=== PATIENT | male | born 1945 | race Caucasian/White ===

== ENCOUNTER 2020-05-24 10:34 | Emergency (ER) | payer OTHER ==
[~2020-05-24] VITALS: Ht 172.7 cm; Wt 90.0 kg
[2020-05-24] MEDS ORDERED: INDOCIN25 MG PO (11:39)
[2020-05-24] MEDS ORDERED: LORTAB 1010 MG PO (11:39)
[2020-05-24 11:50] VITALS: BP 132/89
== END 2020-05-24 11:50 | disposition home or self-care (01) | DRG 554 ==
LOC: ED 10:34
DX: M10.031 Idiopathic gout, right wrist (principal); I10 Essential (primary) hypertension; Z95.5 Presence of coronary angioplasty implant and graft

== ENCOUNTER 2021-02-22 12:46 | Emergency (ER) | payer OTHER ==
[~2021-02-22] VITALS: Ht 172.7 cm; Wt 97.7 kg
[~2021-02-22 12:46] MED LIST: INDOCIN25 MG PO; LORTAB 1010 MG PO
[2021-02-22 13:31] LABS: HEMATOCRIT 50.8 % (39.0-50.0); HEMOGLOBIN 16.9 g/dl (14.0-18.0); IMMATURE GRANULOCYTES 0.3 % (0.0-5.0); MEAN CELL VOLUME 100.8 fL CALC (80.0-100.0); MEAN CORPUSCULAR HGB 33.5 pG CALC (26.0-32.0); MEAN CORPUSCULAR HGB CONC 33.3 g/dL CAL (32.0-36.0); NEUT# 8.04 thou/uL (1.82-7.42); RED BLOOD COUNT 5.04 mill/uL (4.70-6.10); RED CELL DISTRI WIDTH 12.8 % (11.5-15.5)
[2021-02-22 13:46] LABS: ACT PARTIAL THROMBO TIME 25.6 SECONDS (20.0-32.5); PROTHROMBIN TIME 10.4 SECONDS (9.0-12.5)
[2021-02-22 13:54] LABS: ALBUMIN 4.2 g/dL (3.2-5.0); BILIRUBIN, TOTAL 1.2 mg/dL (0.0-1.4); MAGNESIUM 2.3 mg/dL (1.6-2.3); POTASSIUM 4.3 mmol/l (3.5-5.1); TOTAL PROTEIN 7.3 g/dL (6.3-8.2)
[2021-02-22 17:18] VITALS: BP 150/90
[2021-02-22 17:41] LABS: URINE BILIRUBIN - DIPSTICK NEGATIVE (NEGATIVE); URINE BLOOD DIPSTICK NEGATIVE (NEGATIVE); URINE COLOR YELLOW; URINE GLUCOSE - DIPSTICK NEGATIVE (NEGATIVE); URINE KETONE NEGATIVE (NEGATIVE); URINE LEUK ESTERASE NEGATIVE (NEGATIVE); URINE PH 6.5 (4.5-8.0); URINE PROTEIN - DIPSTICK NEGATIVE (NEG-TRACE); URINE UROBILINOGEN - DIPSTICK 0.2 E.U./dL (0.2)
[2021-02-22 17:55] LABS: URINE NITRITE - DIPSTICK NEGATIVE (Negative)
== END 2021-02-22 17:19 | disposition short-term general hospital (02) | DRG 280 ==
LOC: ED 12:46
DX: I21.4 Non-ST elevation (NSTEMI) myocardial infarction (principal); I26.99 Other pulmonary embolism without acute cor pulmonale; I10 Essential (primary) hypertension; I25.10 Atherosclerotic heart disease of native coronary artery without angina pectoris; M10.9 Gout, unspecified; Z95.1 Presence of aortocoronary bypass graft; Z95.5 Presence of coronary angioplasty implant and graft; Z20.822 Contact with and (suspected) exposure to COVID-19
CPT/HCPCS: J1644; Q9967

== ENCOUNTER 2021-05-06 09:29 | Emergency (ER) | payer OTHER ==
[~2021-05-06] VITALS: Ht 172.7 cm; Wt 89.0 kg
[2021-05-06 10:59] VITALS: BP 140/85
== END 2021-05-06 11:05 | disposition home or self-care (01) | DRG 179 ==
LOC: ED 09:29
DX: U07.1 COVID-19 (principal); J02.9 Acute pharyngitis, unspecified; I10 Essential (primary) hypertension; M10.9 Gout, unspecified; Z95.5 Presence of coronary angioplasty implant and graft

== ENCOUNTER 2021-05-16 19:38 | Observation (INO) | payer OTHER, MEDICARE ==
[~2021-05-16] VITALS: Ht 172.7 cm; Wt 82.0 kg
[2021-05-16] VITALS (8 sets, daily range): BP systolic 120–130; BP diastolic 66–85
[2021-05-16 20:31] LABS: HEMOGLOBIN 14.8 g/dl (14.0-18.0); IMMATURE GRANULOCYTES 0.8 % (0.0-5.0); MEAN CELL VOLUME 97.6 fL CALC (80.0-100.0); MEAN CORPUSCULAR HGB 32.8 pG CALC (26.0-32.0); MEAN CORPUSCULAR HGB CONC 33.6 g/dL CAL (32.0-36.0); NEUT# 7.78 thou/uL (1.82-7.42); RED BLOOD COUNT 4.51 mill/uL (4.70-6.10); RED CELL DISTRI WIDTH 13.1 % (11.5-15.5)
[2021-05-16 20:49] LABS: ALBUMIN 3.8 g/dL (3.2-5.0); BILIRUBIN, TOTAL 2.7 mg/dL (0.0-1.4); CREATININE 1.9 mg/dL (0.7-1.3); MAGNESIUM 2.6 mg/dL (1.6-2.3); POTASSIUM 4.4 mmol/l (3.5-5.1); TOTAL PROTEIN 7.3 g/dL (6.3-8.2)
[2021-05-16] MEDS ORDERED: ELIQUIS5 MG PO (20:55)
[2021-05-16 21:18] LABS: TSH, 3RD GENERATION 0.73 uIU/mL (0.47 - 4.68)
[2021-05-17] VITALS (9 sets, daily range): BP systolic 113–148; BP diastolic 61–82
[2021-05-17 03:33] LABS: URINE BLOOD DIPSTICK TRACE-INTACT (NEGATIVE); URINE GLUCOSE - DIPSTICK NEGATIVE (NEGATIVE); URINE KETONE TRACE mg/dL (NEGATIVE); URINE LEUK ESTERASE NEGATIVE (NEGATIVE); URINE PH 5.5 (4.5-8.0); URINE PROTEIN - DIPSTICK 30 mg/dL (NEG-TRACE); URINE SPECIFIC GRAVITY 1.025
[2021-05-17 03:34] LABS: URINE BILIRUBIN - DIPSTICK SMALL (NEGATIVE); URINE NITRITE - DIPSTICK NEGATIVE (Negative)
[2021-05-17 03:35] LABS: URINE COLOR AMBER
[2021-05-17 03:39] LABS: URINE BACTERIA MODERATE hpf; URINE EPITHELIAL CELLS FEW EPI/hpf (0-FEW); URINE MUCUS FEW hpf (NONE-FEW)
[2021-05-17 03:40] LABS: URINE COARSE GRANULAR CAST FEW lpf; URINE FINE GRAN CAST FEW lpf; URINE HYALINE CAST FEW lpf (NONE-RARE)
[2021-05-17 09:48] LABS: INTERNATIONAL NORMALIZED RATIO 1.1 RATIO (0.7-1.3)
[2021-05-17] MEDS ORDERED: ACETAMINOPHEN500 M1 PO (10:21)
[2021-05-17] MEDS ORDERED: ZYLOPRIM300 MG PO (10:21)
[2021-05-17] MEDS ORDERED: COREG3.125 MG PO (10:22)
[2021-05-17] MEDS ORDERED: ASPIRIN/ENTERIC81 MG PO (10:22)
[2021-05-17] MEDS ORDERED: D3-10001000 UNIT PO (10:23)
[2021-05-17] MEDS ORDERED: ISOSORBIDE MONO60 MG PO (10:24)
[2021-05-17] MEDS ORDERED: ZESTRIL40 MG PO (10:25)
[2021-05-17] MEDS ORDERED: SIMVASTATIN40 MG PO (10:25)
[2021-05-17] MEDS ORDERED: TORSEMIDE20 M1 PO (10:25)
[2021-05-18] VITALS: BP 110/73
[2021-05-18 04:00] VITALS: BP 119/82
[2021-05-18 05:44] LABS: HEMATOCRIT 38.4 % (39.0-50.0); MEAN CELL VOLUME 100.5 fL CALC (80.0-100.0); MEAN CORPUSCULAR HGB 33.2 pG CALC (26.0-32.0); MEAN CORPUSCULAR HGB CONC 33.1 g/dL CAL (32.0-36.0); RED BLOOD COUNT 3.82 mill/uL (4.70-6.10); RED CELL DISTRI WIDTH 13.6 % (11.5-15.5)
[2021-05-18 05:51] LABS: HEMOGLOBIN 12.7 g/dl (14.0-18.0)
[2021-05-18 06:20] LABS: CREATININE 1.4 mg/dL (0.7-1.3); MAGNESIUM 2.7 mg/dL (1.6-2.3); POTASSIUM 4.4 mmol/l (3.5-5.1)
[2021-05-18 08:00] VITALS: BP 146/74
[2021-05-18 11:53] VITALS: BP 120/74
[2021-05-18] MEDS ORDERED: LEVAQUIN750 M1 PO (12:02)
== END 2021-05-18 12:55 | disposition home health service (06) | DRG 177 ==
LOC: ED 19:38 → ED-I 05-17 03:00 → ED 05-17 03:17 → MS2 05-17 03:18
PROVIDERS: Emergency Medicine; Nurse Practitioner; ADMIT Hospitalist; ATTEND Hospitalist
DX: U07.1 COVID-19 (principal); J12.82 Pneumonia due to coronavirus disease 2019; G93.41 Metabolic encephalopathy; I10 Essential (primary) hypertension; I25.10 Atherosclerotic heart disease of native coronary artery without angina pectoris; M10.9 Gout, unspecified; E78.5 Hyperlipidemia, unspecified; G93.89 Other specified disorders of brain; Z86.718 Personal history of other venous thrombosis and embolism; Z86.711 Personal history of pulmonary embolism; Z95.1 Presence of aortocoronary bypass graft; Z95.5 Presence of coronary angioplasty implant and graft; Z79.01 Long term (current) use of anticoagulants
CPT/HCPCS: Q9967